=== PATIENT | female | born 1955 | race Caucasian/White ===

== ENCOUNTER 2016-12-10 12:49 | Outpatient (CLI) | payer OTHER | END 2016-12-10 12:50 | disposition home or self-care (01) | DX: R01.1 Cardiac murmur, unspecified (principal) ==

== ENCOUNTER 2017-01-08 15:07 | Outpatient (CLI) | payer OTHER | END 2017-01-08 15:08 | disposition home or self-care (01) | DX: M79.672 Pain in left foot (principal) ==

== ENCOUNTER 2018-05-01 07:41 | Day surgery (SDC) | payer OTHER ==
[2018-05-01] MEDS ORDERED: LACTATED RINGERS 1,000 ML IV ONE (08:20)
[2018-05-01] MEDS ORDERED: BENZOCAINE/TETRACAINE/BUTAMBEN 20 GM ONE (09:23)
[2018-05-01] MEDS ORDERED: LIDO GARGLE 30 ML BOTTLE ONE (09:23)
[2018-05-01] MEDS ORDERED: fentaNYL 250 MCG/5 ML VIAL IVP ONE (09:28)
[2018-05-01] MEDS ORDERED: MIDAZOLAM 2 MG/2 ML VIAL IVP ONE (09:28)
[2018-05-01 10:52] VITALS: BP 128/53
== END 2018-05-01 07:42 | disposition home or self-care (01) ==
LOC: SDS 07:41
PROVIDERS: ATTEND Internal Medicine Gastroenterology
PROC: 0DBP8ZZ Excision of Rectum, Via Natural or Artificial Opening Endoscopic (ICD-10-PCS; principal; 2018-05-01 09:00)
PROC: 0DB78ZZ Excision of Stomach, Pylorus, Via Natural or Artificial Opening Endoscopic (ICD-10-PCS; 2018-05-01 09:00)
DX: Z12.11 Encounter for screening for malignant neoplasm of colon (principal); Z86.010 Personal history of colon polyps; D12.8 Benign neoplasm of rectum; K21.9 Gastro-esophageal reflux disease without esophagitis; D13.1 Benign neoplasm of stomach; K31.9 Disease of stomach and duodenum, unspecified; E11.9 Type 2 diabetes mellitus without complications; I10 Essential (primary) hypertension; Z79.84 Long term (current) use of oral hypoglycemic drugs; Z79.899 Other long term (current) drug therapy
CPT/HCPCS: 43239; 45380; A9270; J3010; J7120